=== PATIENT | male | born 1985 | race Caucasian/White ===

== ENCOUNTER 2023-09-22 05:55 | Day surgery (SDC) | payer OTHER ==
[2023-09-22] MEDS: Lactated Ringers 1,000 ML IV SCH (06:19)
[2023-09-22 06:20] VITALS: RESP 16
[2023-09-22] MEDS ORDERED: DIPRIVAN 200 MG/20 ML IV ONE ×2 (07:22→07:39)
[2023-09-22] MEDS ORDERED: Versed 2 MG/2 ML Injection ONE (07:23)
[2023-09-22 08:21] VITALS: BP 115/80; PULSE 96; TEMP 97.4; O2SAT 97
--- NOTE | 2023-09-22 08:45 | OP ---
SURGERY DATE/TIME: 09/22/2023 0729 PREOPERATIVE DIAGNOSIS: Persistent gastroesophageal reflux disease. POSTOPERATIVE DIAGNOSIS: Gastric polyps. PROCEDURE: EGD. SURGEON: Abdoul Delgadillo M.D. ANESTHESIA: MAC by Myron Palma CRNA. QUANTITATIVE BLOOD LOSS: Minimal. SPECIMENS: There are two gastric polyps cold forceps biopsies and one cold forceps biopsy from the gastroesophageal junction. DESCRIPTION OF PROCEDURE: After informed written consent was obtained, the patient was taken to the endoscopy suite. He was placed in the left lateral decubitus position and a bite block inserted. Anesthesia was titrated to the desired level of consciousness and the endoscope was inserted into the posterior oropharynx. Under direct visualization the esophagus was easily traversed. The esophageal mucosa had a normal appearance free of any lesions or defects. Upon entering the stomach, there was normal rugated gastric mucosa free of any lesions or defects. Multiple fundal gland polyps were noted. No other abnormalities were encountered. The pylorus was traversed and the first and second portions of the duodenum were within normal limits. Again, all mucosal structures in the stomach showed no evidence of ulceration or bleeding. Retroflexion showed no abnormal lesions or concerns in the upper portions of the stomach. Two benefits representative fundal gland polyps were grasped with forceps and samples were sent together for pathology. There was minimal blood loss. The gastroesophageal junction appeared normal with a crisp Z-line but due to his long-standing severe gastroesophageal reflux disease history I elected to take a biopsy from the gastroesophageal junction and sent for pathology testing. The remainder of the exam was normal. The scope was removed and the patient was transferred to the recovery room in good condition.
== END 2023-09-22 08:30 | disposition home or self-care (01) ==
LOC: SDC 05:55
PROVIDERS: ATTEND Family Medicine
DX: K31.7 Polyp of stomach and duodenum (principal); K21.9 Gastro-esophageal reflux disease without esophagitis
CPT/HCPCS: J2250; J2704